=== PATIENT | female | born 1975 | race Caucasian/White ===

== ENCOUNTER → 2022-08-12 13:29 | Outpatient (CLI) | payer BC, SELFPAY ==
--- NOTE | ~2022-08-12 | MM_ITS ---
EXAMINATION: MM screening virgie BI w harvinder HISTORY: Screening mammogram TECHNIQUE: Craniocaudal and mediolateral oblique 3-D tomosynthesis images were obtained and synthetic 2-D images were generated. CAD analysis was submitted and interpreted. COMPARISON: No prior mammogram is available for comparison at this institution. BREAST PARENCHYMAL COMPOSITION: The breasts are extremely dense, which lowers the sensitivity of mamm ography. FINDINGS: There are scattered bilateral punctate benign-appearing microcalcifications. No malignant c alcification is evident. Bilateral breast masses are suggested. The extremely dense stroma may obscur e masses. Bilateral diagnostic mammography and bilateral breast ultrasound examination are recommende d. IMPRESSION: 1. Probable bilateral breast masses 2. Bilateral diagnostic mammography and breast ultrasound correlation are recommended BI-RADS Category 0: Incomplete: Needs additional imaging evaluation. Reviewed, dictated and finalized at location [facility]. CE AND FIRE DISPATCHER IMPRESSION: 1. Probable bilateral breast masses 2. Bilateral diagnostic mammography and breast ultrasound correlation are recom mended BI-RADS Category 0: Incomplete: Needs additional imaging evaluation.
== END ==
PROVIDERS: PCP Obstetrics & Gynecology Gynecology; Visit Provider Obstetrics & Gynecology Gynecology
DX: Z12.31 Encounter for screening mammogram for malignant neoplasm of breast (principal); R92.8 Other abnormal and inconclusive findings on diagnostic imaging of breast
CPT/HCPCS: 77063; 77067

== ENCOUNTER → 2022-09-03 08:46 | Outpatient (CLI) | payer BC, SELFPAY ==
--- NOTE | ~2022-09-03 | US_ITS ---
US breast BI complete DATE: 09/03/2022 09:24 INDICATION: Bilateral breast masses and very dense fibroglandular stroma on 08/12/2022 bilateral scree dereje mammogram TECHNIQUE: High-resolution ultrasound imaging of both complete breasts, including all 4 quadrants and subareolar areas COMPARISON: 08/12/2021 bilateral screening mammogram FINDINGS: There are multiple bilateral breast cysts, the largest on the right situated at 10:00 subar eolar area, measuring up to 6 x 11 mm, the largest on the left situated at 12:00 1 cm from nipple, me asuring up to 10 x 20 x 22 mm. At 6:00 6 cm from the nipple in the left breast there is a parallel circumscribed 5 x 10 mm complex m ixed cystic and solid lesion without internal vascularity or posterior shadowing, benign in appearanc e. No suspicious mass or shadowing of either breast is evident. IMPRESSION: BI-RADS Category 2: Benign Recommendation: Routine mammographic screening Reviewed, dictated and finalized at [facility]. Reviewed, dictated and finalized at location [facility]. [employer] WRAPPING MACHINE TENDER
== END ==
PROVIDERS: PCP Obstetrics & Gynecology Gynecology; Visit Provider Obstetrics & Gynecology Gynecology
DX: R92.8 Other abnormal and inconclusive findings on diagnostic imaging of breast (principal)
CPT/HCPCS: 76641

== ENCOUNTER 2023-11-18 13:50 | Outpatient (CLI) | payer BC, SELFPAY ==
--- NOTE | ~2023-11-18 | MM_ITS ---
EXAMINATION: MM screening virgie BI w harvinder HISTORY: Screening mammogram TECHNIQUE: Craniocaudal and mediolateral oblique 3-D tomosynthesis images were obtained and synthetic 2-D images were generated. CAD analysis was submitted and interpreted. COMPARISON: 09/03/2022 bilateral complete breast ultrasound examination 08/12/2022 bilateral screening mammogram 05/29/2021 [facility] bilateral screening mammogram BREAST PARENCHYMAL COMPOSITION: The breasts are extremely dense, which lowers the sensitivity of mamm ography. FINDINGS: Scattered punctate benign microcalcifications. Evidence of fibrocystic change. There is no evidence of suspicious mass, calcification, or architectural distortion to suggest malignancy in eith er breast. There has been no suspicious interval change. IMPRESSION: 1. Benign findings. No mammographic evidence of malignancy. 2. Recommend routine screening mammography in one year. BI-RADS Category 2: Benign finding(s). Reviewed, dictated and finalized at location [facility].
== END 2023-11-18 13:51 ==
PROVIDERS: PCP Family Medicine Sports Medicine; Visit Provider Nurse Practitioner
DX: Z12.31 Encounter for screening mammogram for malignant neoplasm of breast (principal)
CPT/HCPCS: 77063; 77067

== ENCOUNTER 2024-11-29 15:09 | Outpatient (CLI) | payer BC, SELFPAY ==
--- NOTE | ~2024-11-29 | MM_ITS ---
EXAMINATION: MM screening virgie BI w harvinder HISTORY: Screening TECHNIQUE: Craniocaudal and mediolateral oblique 3-D tomosynthesis images were obtained and synthetic 2-D images were generated. CAD analysis was submitted and interpreted. COMPARISON: Comparison to multiple prior studies sequentially, with oldest reviewed study dated 01/2020. BREAST PARENCHYMAL COMPOSITION: Dense: The breasts are extremely dense, which lowers the sensitivity of mammography. FINDINGS: There is no evidence of suspicious mass, calcification, or architectural distortion to sugg est malignancy in either breast. There has been no suspicious interval change. IMPRESSION: 1. No mammographic evidence of malignancy. 2. Recommend routine screening mammography in one year. BI-RADS Category 1: Negative Reviewed, dictated and finalized at location A.
== END 2024-11-29 15:10 | disposition home or self-care (01) ==
LOC: MICIMG 15:11
PROVIDERS: PCP Family Medicine; Visit Provider Nurse Practitioner
DX: Z12.31 Encounter for screening mammogram for malignant neoplasm of breast (principal)
CPT/HCPCS: 77063; 77067